=== PATIENT | male | born 1990 | race African-American/Black ===

== ENCOUNTER 2017-01-15 10:05 | Emergency (ER) | payer SELFPAY ==
[~2017-01-15] VITALS: Ht 185.4 cm; Wt 100.0 kg
[2017-01-15 10:07] VITALS: BP 159/90; PULSE 63; RESP 16; TEMP 98; O2SAT 100
[2017-01-15] MEDS ORDERED: SODIUM CHLOR 0.9% 1000 ML INJ 1,000 ML IV SCH (10:29)
[2017-01-15] MEDS ORDERED: KETOROLAC TROMETHAMINE 30 MG/ML (IVP) VIAL IVP ONE (10:30)
[2017-01-15] MEDS ORDERED: SODIUM CHLORIDE 0.9% FLUSH 10 ML FLUSH IV FLUSH PRN (10:30)
--- NOTE | 2017-01-15 10:36 | PD ---
Physical Exam Date Seen by Provider: Jan 15, 2017 Time Seen by Provider: 11:00 Narrative 26-year-old male presents to emergency Department with abdominal pain. He was previously seen and evaluated by Dr. Bullard who ordered some labs. Please see her note. Data Data Last Documented VS Vital Signs Date Time Temp Pulse Resp B/P (MAP) Pulse Ox O2 Delivery O2 Flow Rate FiO2 01/15/17 11:10 65 14 160/90 (113) 98 Room Air 01/15/17 10:07 98.0 Orders Orders Complete Blood Count With Diff (01/15/17 10:29) Comprehensive Metabolic Panel (01/15/17 10:29) Lipase (01/15/17 10:29) Urinalysis - C+S If Indicated (01/15/17 10:29) Iv Access Insert/Monitor (01/15/17 10:29) Ecg Monitoring (01/15/17 10:29) Oximetry (01/15/17 10:29) Sodium Chlor 0.9% 1000 Ml Inj (Ns 1000 M (01/15/17 10:29) Sodium Chloride 0.9% Flush (Ns Flush) (01/15/17 10:30) Ketorolac Inj (Toradol Inj) (01/15/17 10:30) Azithromycin (Zithromax) (01/15/17 12:00) Ceftriaxone Inj (Rocephin Inj) (01/15/17 12:00) Lidocaine 1% Inj (50 Ml) (Xylocaine 1% I (01/15/17 12:00) Labs Laboratory Tests Test 01/15/17 10:45 White Blood Count 6.5 TH/MM3 Red Blood Count 5.82 MIL/MM3 Hemoglobin 15.1 GM/DL Hematocrit 46.1 % Mean Corpuscular Volume 79.2 FL Mean Corpuscular Hemoglobin 25.9 PG Mean Corpuscular Hemoglobin Concent 32.7 % Red Cell Distribution Width 14.1 % Platelet Count 254 TH/MM3 Mean Platelet Volume 7.7 FL Neutrophils (%) (Auto) 40.5 % Lymphocytes (%) (Auto) 45.9 % Monocytes (%) (Auto) 10.7 % Eosinophils (%) (Auto) 2.0 % Basophils (%) (Auto) 0.9 % Neutrophils # (Auto) 2.6 TH/MM3 Lymphocytes # (Auto) 3.0 TH/MM3 Monocytes # (Auto) 0.7 TH/MM3 Eosinophils # (Auto) 0.1 TH/MM3 Basophils # (Auto) 0.1 TH/MM3 CBC Comment DIFF FINAL Differential Comment Urine Color LIGHT-YELLOW Urine Turbidity CLEAR Urine pH 7.0 Urine Specific [place] 1.013 Urine Protein NEG mg/dL Urine Glucose (UA) NEG mg/dL Urine Ketones NEG mg/dL Urine Occult Blood NEG Urine Nitrite NEG Urine Bilirubin NEG Urine Urobilinogen LESS THAN 2.0 MG/DL Urine Leukocyte Esterase NEG Urine RBC LESS THAN 1 /hpf Urine WBC LESS THAN 1 /hpf Urine Squamous Epithelial Cells <1 /hpf Urine Mucus FEW /lpf Microscopic Urinalysis Comment CULT NOT INDICATED Blood Urea Nitrogen 16 MG/DL Creatinine 1.03 MG/DL Random Glucose 94 MG/DL Total Protein 7.7 GM/DL Albumin 4.0 GM/DL Calcium Level 8.6 MG/DL Alkaline Phosphatase 68 U/L Aspartate Amino Transf (AST/SGOT) 37 U/L Alanine Aminotransferase (ALT/SGPT) 36 U/L Total Bilirubin 0.5 MG/DL Sodium Level 139 MEQ/L Potassium Level 3.9 MEQ/L Chloride Level 104 MEQ/L Carbon Dioxide Level 26.6 MEQ/L Anion Gap 8 MEQ/L Estimat Glomerular Filtration Rate 105 ML/MIN Lipase 112 U/L MDM Medical Record Reviewed: Yes Supervised Visit with SAFIA: Yes Narrative Course Labs show CBC without significant findings. CMP shows no significant findings. Urinalysis shows no significant findings. Patient reports exposure to chlamydia from his who was recently treated chlamydia. Patient currently has no urinary symptoms, discharge, or dysuria. Due to this positive exposure history he'll be treated with azithromycin 1000 mg by mouth. Patient also given Rocephin 1000 mg IM. Patient taking [id number] ibuprofen Tylenol and Imodium as needed. Patient follow with his primary care physician as needed. Diagnosis Primary Impression: Abdominal pain Qualified Codes: R10.32 - Left lower quadrant pain Additional Impression: Exposure to STD Referrals: [facility] Patient Instructions: Abdominal Pain (ED), General Instructions Additional Instruction: Labs show CBC without significant findings. CMP shows no significant findings. Urinalysis shows no significant findings. Patient reports exposure to chlamydia from his who was recently treated chlamydia. Patient currently has no urinary symptoms, discharge, or dysuria. Due to this positive exposure history he'll be treated with azithromycin 1000 mg by mouth. Patient also given Rocephin 1000 mg IM. Patient taking [id number] ibuprofen Tylenol and Imodium as needed. Patient follow with his primary care physician as needed. Med/Other Pt SpecificInfo: No Meds Exist/No RX given Scripts No Active Prescriptions or Reported Meds Disposition: 01 DISCHARGE HOME Condition: Stable Tristin Schroeder Jan 15, 2017 10:36
--- NOTE | 2017-01-15 10:38 | PD ---
HPI Chief Complaint: Abdominal Pain Time Seen by Provider: 10:29 Travel History International Travel<30 days: No Contact w/Intl Traveler<30days: No Traveled to known affect area: No History of Present Illness HPI This is a 26-year-old male who presents to the emergency department with left lower quadrant abdominal pain that started yesterday, intermittent, moderate severity associated with nausea but no vomiting. He's had no fevers or chills. He had some loose stools. He says currently the pain is 6 out of 10. He's never had pain like this before. He's never had any abdominal surgeries. [facility] Past Medical History Medical History: Denies Significant Hx Tetanus Vaccination: < 5 Years Past Surgical History Surgical History: No Previous Surgery Social History Alcohol Use: No Tobacco Use: No Substance Use: Yes (pot) Allergies-Medications (Allergen,Severity, Reaction): Coded Allergies: No Known Allergies (Unverified , 01/15/17) Reported Meds & Prescriptions Reported Meds & Active Scripts Active No Active Prescriptions or Reported Medications Review of Systems Except as stated in HPI: all other systems reviewed are Neg Physical Exam Narrative GENERAL:Well appearing, no acute distress SKIN: Focused skin assessment warm and dry. HEAD: Atraumatic. Normocephalic. EYES: Pupils equal and round. No injection or drainage. ENT: Moist mucous membranes NECK: Trachea midline. CARDIOVASCULAR: Regular rate and rhythm. No murmur appreciated. RESPIRATORY: Clear to auscultation. Breath sounds equal bilaterally. GASTROINTESTINAL: Abdomen soft, mildly tender to palpation in the left upper and lower quadrants with no rebound or guarding. MUSCULOSKELETAL: No obvious deformities. NEUROLOGICAL: Awake and alert. No obvious cranial nerve deficits. Moving all extremities. PSYCHIATRIC: Appropriate mood and affect; insight and judgment normal. Data Data Last Documented VS Vital Signs Date Time Temp Pulse Resp B/P (MAP) Pulse Ox O2 Delivery O2 Flow Rate FiO2 01/15/17 10:07 98.0 63 16 159/90 (113) 100 Orders Orders Complete Blood Count With Diff (01/15/17 10:29) Comprehensive Metabolic Panel (01/15/17 10:29) Lipase (01/15/17 10:29) Urinalysis - C+S If Indicated (01/15/17 10:29) Iv Access Insert/Monitor (01/15/17 10:29) Ecg Monitoring (01/15/17 10:29) Oximetry (01/15/17 10:29) Sodium Chlor 0.9% 1000 Ml Inj (Ns 1000 M (01/15/17 10:29) Sodium Chloride 0.9% Flush (Ns Flush) (01/15/17 10:30) Ketorolac Inj (Toradol Inj) (01/15/17 10:30) MDM Medical Decision Making Medical Screen Exam Complete: Yes Emergency Medical Condition: Yes Differential Diagnosis Colitis, pancreatitis, kidney stone, appendicitis Narrative Course This is a 26-year-old male who presents to the emergency department with left lower quadrant abdominal pain that started yesterday. I suspect he has a mild colitis based on his physical exam. Labs will be obtained. If he has a leukocytosis of 13 or above I would perform a CT abdomen and pelvis to evaluate for surgical etiology of symptoms although I think this is unlikely. If urinalysis demonstrates blood would perform a CT to rule out kidney stone. If His labs are normal, I think patient can be discharged with symptomatic management with Bentyl and anti-inflammatories. Scripts No Active Prescriptions or Reported Meds Alison Bullard MD Jan 15, 2017 10:38
[2017-01-15 11:09] VITALS: O2SAT 98
[2017-01-15 11:10] VITALS: BP 160/90; PULSE 65; RESP 14; O2SAT 98
[2017-01-15 11:31] LABS: AUTOMATED NEUTROPHIL # 2.6 TH/MM3 (1.8-7.7); BASOPHIL # 0.1 TH/MM3 (0-0.2); BASOPHIL % 0.9 % (0.0-2.0); EOSINOPHIL # 0.1 TH/MM3 (0-0.4); HEMATOCRIT 46.1 % (39.0-51.0); HEMO FLAGS DIFF FINAL; LYMPH % 45.9 % (9.0-44.0); MEAN CELL VOLUME 79.2 FL (80.0-100.0); MEAN CORPUSCULAR HEMOGLOBIN 25.9 PG (27.0-34.0); MEAN CORPUSCULAR HGB CONC 32.7 % (32.0-36.0); MONO % 10.7 % (0.0-8.0); NEUT % 40.5 % (16.0-70.0); PLATELET COUNT 254 TH/MM3 (150-450); RED BLOOD COUNT 5.82 MIL/MM3 (4.50-5.90); RED CELL DISTRIBUTION WIDTH 14.1 % (11.6-17.2); WHITE BLOOD COUNT 6.5 TH/MM3 (4.0-11.0)
[2017-01-15 11:45] LABS: ANION GAP 8 MEQ/L (5-15); AST (GOT) 37 U/L (15-37); BICARBONATE 26.6 MEQ/L (21.0-32.0); BLOOD UREA NITROGEN 16 MG/DL (7-18); CHLORIDE 104 MEQ/L (98-107); GLOMERULAR FILTRATION RATE 105 ML/MIN (>89); POTASSIUM 3.9 MEQ/L (3.5-5.1); SODIUM (NA) 139 MEQ/L (136-145)
[2017-01-15 11:49] LABS: ALKALINE PHOSPHATASE 68 U/L (45-117); ALT (GPT) 36 U/L (12-78); TOTAL BILIRUBIN ADULT 0.5 MG/DL (0.2-1.0)
[2017-01-15] MEDS ORDERED: LIDOCAINE HCL 1% 50 ML VIAL INFIL ONE (12:00)
[2017-01-15] MEDS ORDERED: AZITHROMYCIN 250 MG TAB PO ONE (12:00)
[2017-01-15 12:16] LABS: BLOOD, URINE NEG (NEG); COMMENT (UR) CULT NOT INDICATED; CULTURE IF INDICATED CULT NOT INDICATED; GLUCOSE,URINE NEG (NEG); KETONE, URINE NEG (NEG); MUCUS URINE FEW /lpf (OCC); NITRITE,URINE NEG (NEG); SQUAMOUS EPITHELIAL CELL URINE <1 /hpf (0-5); URINE COLOR LIGHT-YELLOW (YELLW/STRAW)
[2017-01-15 12:46] VITALS: BP 164/92; PULSE 62; RESP 14; O2SAT 98
== END 2017-01-15 12:47 | disposition home or self-care (01) ==
LOC: NEPD 10:05
DX: R10.32 Left lower quadrant pain (principal); R11.0 Nausea; Z20.2 Contact with and (suspected) exposure to infections with a predominantly sexual mode of transmission
CPT/HCPCS: 80053; 81001; 83690; 85025; 96361; 96372; 96374; 99284; J0696; J1885; J7030

== ENCOUNTER 2017-04-13 20:35 | Emergency (ER) | payer OTHER ==
[~2017-04-13] VITALS: Ht 190.5 cm; Wt 110.0 kg
[2017-04-13 20:40] VITALS: BP 137/76; PULSE 71; RESP 18; TEMP 98.5; O2SAT 99
[2017-04-13] MEDS ORDERED: CYCL10TA PO (22:33)
[2017-04-13] MEDS ORDERED: DICL75TA PO (22:33)
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
[2017-04-13] MEDS ORDERED: NAPROXEN 500 MG TAB PO ONE (22:45)
[2017-04-13] MEDS ORDERED: CYCLOBENZAPRINE HCL 10 MG TAB PO ONE (22:45)
== END 2017-04-13 23:02 | disposition home or self-care (01) ==
LOC: NEPD 20:35
DX: S16.1XXA Strain of muscle, fascia and tendon at neck level, initial encounter (principal); S39.012A Strain of muscle, fascia and tendon of lower back, initial encounter; V49.49XA Driver injured in collision with other motor vehicles in traffic accident, initial encounter
CPT/HCPCS: 99283